=== PATIENT | male | born 1960 | race Caucasian/White ===

== ENCOUNTER 2017-02-16 00:10 | Emergency (ER) | payer MEDICARE, OTHER ==
[~2017-02-16] VITALS: Ht 188 cm; Wt 81.8 kg
[2017-02-16 00:14] VITALS: BP 124/60
[2017-02-16] MEDS ORDERED: FENT100PAT TD (00:17)
[2017-02-16] MEDS ORDERED: OXYC10 PO (00:17)
[2017-02-16] MEDS ORDERED: PROMETHAZINE HCL 25 MG in SODIUM CHLORIDE 0.9% 50 ML IV ONE (02:45)
[2017-02-16] MEDS ORDERED: LORazepam 2 MG/ML VIAL IVP ONE (02:45)
[2017-02-16 03:20] LABS: BASOPHILS # (AUTO) 0.04 K/uL (0.00-0.20); BASOPHILS % (AUTO) 0.6 % (0.0-2.0); EOSINOPHILS # (AUTO) 0.01 K/uL (0.00-0.70); EOSINOPHILS % (AUTO) 0.17 % (1.0-6.0); HEMATOCRIT 43.6 % (41-53); HEMOGLOBIN 14.3 g/dL (13.5-17.5); LYMPHOCYTES # (AUTO) 0.9 K/uL (1.0-4.8); LYMPHOCYTES % (AUTO) 14.1 % (22.0-44.0); MEAN CORPUSCULAR HEMOGLOBIN 31.7 pg (26.0-34.0); MEAN CORPUSCULAR HGB CONC 32.9 G/dL (31.0-37.0); MEAN CORPUSCULAR VOLUME 96 fL (80-100); MONOCYTES # (AUTO) 0.6 K/uL (0.1-1.0); MONOCYTES % (AUTO) 9.9 % (2.0-9.0); NEUTROPHILS # (AUTO) 4.7 K/uL (1.8-7.7); NEUTROPHILS % (AUTO) 75.2 % (40.0-70.0); PLATELET COUNT (AUTO) 353 K/uL (150-450); RED BLOOD CELL COUNT(AUTO) 4.52 MIL/uL (4.50-5.90); RED CELL DISTRIBUTION WIDTH 15.8 % (11.5-14.5); WHITE BLOOD COUNT (AUTO) 6.2 K/uL (4.5-11.0)
[2017-02-16 03:28] LABS: ANION GAP 15 mmol/L (8-16); CALCIUM, TOTAL 9.7 mg/dL (8.8-10.5); CARBON DIOXIDE 20 mmol/L (22-29); CHLORIDE 98 mmol/L (98-107); CREATININE 0.68 mg/dL (0.60-1.30); GLOMERULAR FILTR. RATE CALC > 60 mL/min (>60); POTASSIUM 3.6 mmol/L (3.5-5.1); SODIUM SERUM 133 mmol/L (136-145); UREA NITROGEN, BLOOD 8 mg/dL (7-18)
[2017-02-16 03:35] LABS: LACTIC ACID 0.7 mmol/L (0.4-2.0)
[2017-02-16 03:40] LABS: RBC MORPHOLOGY COMMENT DIMORPHIC RBC
[2017-02-16 03:42] LABS: ALANINE AMINOTRANSFERASE 15 U/L (12-78); ALBUMIN 3.3 g/dL (3.4-5.0); ASPARTATE AMINOTRANSFERASE 23 U/L (15-37); BILIRUBIN,TOTAL 0.4 mg/dL (0.1-1.0); TOTAL PROTEIN, SERUM 8.6 g/dL (6.4-8.2)
[2017-02-16] MEDS ORDERED: PROMETHAZINE HCL 25 MG/ML VIAL IM ONE (05:15)
[2017-02-16] MEDS ORDERED: HYDROmorphone 2 MG/ML SYRINGE IM ONE (05:15)
== END 2017-02-16 06:31 | disposition home or self-care (01) ==
LOC: EMS 00:14
DX: M54.5 Low back pain (principal); G89.29 Other chronic pain; F11.20 Opioid dependence, uncomplicated
CPT/HCPCS: 36415; 80053; 83605; 83690; 84484; 85025; 96372; 96374; 96375; 99284; G0480; J1170; J2060; J2550; J7050

== ENCOUNTER 2017-11-28 20:52 | Inpatient (IN) | payer MEDICARE, MEDICAID ==
[~2017-11-28] VITALS: Ht 180.3 cm; Wt 71.4 kg
[~2017-11-28 20:52] MED LIST: FENT100PAT TD; OXYC10 PO
[2017-11-28 22:48] LABS: AMPHET/METH SCREEN,URINE POSITIVE (NEGATIVE); BARBITURATE SCREEN, URINE NEGATIVE (NEGATIVE); BENZODIAZEPINES SCREEN,URINE POSITIVE (NEGATIVE); CANNABINOID SCREEN,URINE NEGATIVE (NEGATIVE); COCAINE SCREEN,URINE POSITIVE (NEGATIVE); METHADONE SCREEN, URINE NEGATIVE (NEGATIVE); OPIATE SCREEN,URINE POSITIVE (NEGATIVE)
[2017-11-28 22:49] LABS: PHENCYCLIDINE SCREEN,URINE NEGATIVE (NEGATIVE)
[2017-11-28 23:12] LABS: BASOPHILS % (AUTO) 0.2 % (0.0-2.0); EOSINOPHILS % (AUTO) 0.3 % (1.0-6.0); HEMATOCRIT 36.1 % (41-53); HEMOGLOBIN 12.9 g/dL (13.5-17.5); LYMPHOCYTES % (AUTO) 20.6 % (22.0-44.0); MEAN CORPUSCULAR HEMOGLOBIN 32.8 pg (26.0-34.0); MEAN CORPUSCULAR HGB CONC 35.6 G/dL (31.0-37.0); MEAN CORPUSCULAR VOLUME 92 fL (80-100); MONOCYTES # (AUTO) 0.4 K/uL (0.1-1.0); MONOCYTES % (AUTO) 8.6 % (2.0-9.0); NEUTROPHILS # (AUTO) 3.5 K/uL (1.8-7.7); NEUTROPHILS % (AUTO) 70.3 % (40.0-70.0); PLATELET COUNT (AUTO) 113 K/uL (150-450); RED BLOOD CELL COUNT(AUTO) 3.93 MIL/uL (4.50-5.90); RED CELL DISTRIBUTION WIDTH 14.8 % (11.5-14.5)
[2017-11-28 23:22] LABS: ANION GAP 16 mmol/L (8-16); CALCIUM, TOTAL 10.2 mg/dL (8.8-10.5); CARBON DIOXIDE 23 mmol/L (22-29); CHLORIDE 98 mmol/L (98-107); CREATININE 0.63 mg/dL (0.60-1.30); GLOMERULAR FILTR. RATE CALC > 60 mL/min (>60); GLUCOSE,RANDOM 99 mg/dL (70-110); SODIUM SERUM 137 mmol/L (136-145); UREA NITROGEN, BLOOD 17 mg/dL (7-18)
[2017-11-28 23:29] LABS: ALANINE AMINOTRANSFERASE 43 U/L (12-78); ALBUMIN 3.3 g/dL (3.4-5.0); ALKALINE PHOSPHATASE 84 U/L (46-116); ASPARTATE AMINOTRANSFERASE 65 U/L (15-37); BILIRUBIN,TOTAL 0.5 mg/dL (0.1-1.0); TOTAL PROTEIN, SERUM 8.9 g/dL (6.4-8.2)
[2017-11-29] VITALS (10 sets, daily range): BP systolic 118–138; BP diastolic 69–87
[2017-11-29] MEDS ORDERED: LORazepam 2 MG/ML VIAL IM ONE (01:00)
[2017-11-29] MEDS ORDERED: HALOPERIDOL LACTATE 5 MG/ML VIAL IM ONE (01:00)
[2017-11-29] MEDS ORDERED: DiphenhydrAMINE HCL 50 MG/ML VIAL IM ONE (01:00)
[2017-11-29] MEDS ORDERED: HALOPERIDOL 5 MG TABLET PO PRN (01:15)
[2017-11-29] MEDS ORDERED: LORazepam 2 MG TABLET PO PRN (01:15)
[2017-11-29] MEDS ORDERED: POTASSIUM CHLORIDE 20 MEQ ER TABLET PO ONE (03:33)
[2017-11-29] MEDS ORDERED: BENZOCAINE/MENTHOL LOZENGE MM PRN (09:00)
[2017-11-29] MEDS ORDERED: BENZOCAINE/MENTHOL LOZENGE [8 LOZENGES/PACKET] MM PRN (09:00)
[2017-11-29] MEDS ORDERED: PETROLATUM,WHITE 71 GM JELLY TP PRN (09:00)
[2017-11-29] MEDS ORDERED: MAGNESIUM HYDROXIDE SUSPENSION 30 ML UDCUP PO PRN (09:00)
[2017-11-29] MEDS ORDERED: LOPERAMIDE HCL 2 MG CAPSULE PO PRN ×2 (09:00→11:30)
[2017-11-29] MEDS ORDERED: CloNIDine HCL 0.1 MG TABLET PO PRN (09:00)
[2017-11-29] MEDS ORDERED: ACETAMINOPHEN 325 MG TABLET PO PRN (09:00)
[2017-11-29] MEDS ORDERED: BACITRACIN 28.4 GM OINTMENT TP PRN (09:00)
[2017-11-29] MEDS: ONDANSETRON HCL 4 MG TABLET PO PRN ×2 (09:19→13:34)
[2017-11-29] MEDS: IBUPROFEN 600 MG TABLET PO PRN ×2 (10:39→18:23)
[2017-11-29] MEDS ORDERED: CYANOCOBALAMIN 1,000 MCG/ML VIAL IM ONE (11:30)
[2017-11-29] MEDS ORDERED: GuaiFENesin/D-METHORPHAN [SUGAR-FREE] 200-20MG/10 ML SYRUP UDCUP PO PRN (11:30)
[2017-11-29] MEDS ORDERED: HydrOXYzine PAMOATE 50 MG CAPSULE PO PRN (11:30)
[2017-11-29] MEDS: FLUoxetine HCL 20 MG CAPSULE PO SCH (11:58)
[2017-11-29] MEDS: LORazepam 2 MG TABLET PO PRN ×2 (11:59→16:07)
[2017-11-29] MEDS: THIAMINE HCL 100 MG TABLET PO SCH (16:32)
[2017-11-29] MEDS: MAG HYDROX/AL HYDROX/SIMETH ES 30 ML SUSPENSION UDCUP PO PRN (18:21)
[2017-11-30] VITALS (10 sets, daily range): BP systolic 114–151; BP diastolic 77–87
[2017-11-30] MEDS: LORazepam 2 MG TABLET PO PRN (00:11)
[2017-11-30] MEDS: MAG HYDROX/AL HYDROX/SIMETH ES 30 ML SUSPENSION UDCUP PO PRN ×2 (00:12→18:11)
[2017-11-30] MEDS ORDERED: LORazepam 2 MG TABLET PO PRN (07:00)
[2017-11-30] MEDS: FOLIC ACID 1 MG TABLET PO SCH (08:31)
[2017-11-30] MEDS: FLUoxetine HCL 20 MG CAPSULE PO SCH (08:31)
[2017-11-30] MEDS: LORazepam 2 MG TABLET PO SCH ×4 (08:31→20:34)
[2017-11-30] MEDS: THIAMINE HCL 100 MG TABLET PO SCH ×2 (08:31→16:38)
[2017-11-30] MEDS: MULTIVITAMINS WITH MINERALS, THERAPEUTIC TABLET PO SCH (08:31)
[2017-11-30] MEDS: IBUPROFEN 600 MG TABLET PO PRN ×2 (10:21→16:22)
[2017-11-30] MEDS: TraMADol HCL 50 MG TABLET PO SCH (19:31)
[2017-12-01] VITALS (10 sets, daily range): BP systolic 116–150; BP diastolic 80–93
[2017-12-01] MEDS: TraMADol HCL 50 MG TABLET PO SCH ×2 (00:11→08:03)
[2017-12-01] MEDS: ZOLPIDEM TARTRATE 10 MG TABLET PO PRN (00:12)
[2017-12-01] MEDS: IBUPROFEN 600 MG TABLET PO PRN ×2 (05:56→12:17)
[2017-12-01] MEDS: MULTIVITAMINS WITH MINERALS, THERAPEUTIC TABLET PO SCH (08:03)
[2017-12-01] MEDS: FOLIC ACID 1 MG TABLET PO SCH (08:03)
[2017-12-01] MEDS: FLUoxetine HCL 20 MG CAPSULE PO SCH (08:04)
[2017-12-01] MEDS: THIAMINE HCL 100 MG TABLET PO SCH ×2 (08:04→16:36)
[2017-12-01] MEDS: LORazepam 2 MG TABLET PO SCH ×4 (08:04→20:53)
[2017-12-01] MEDS: NICOTINE 21 MG/24 HOUR PATCH TD SCH (08:04)
[2017-12-01 10:11] LABS: ANION GAP 7 mmol/L (8-16); CALCIUM, TOTAL 9.2 mg/dL (8.8-10.5); CARBON DIOXIDE 27 mmol/L (22-29); CHLORIDE 97 mmol/L (98-107); CHOLESTEROL 106 mg/dL (131-200); GLOMERULAR FILTR. RATE CALC > 60 mL/min (>60); GLUCOSE,RANDOM 106 mg/dL (70-110); HDL CHOLESTEROL 53 mg/dL (40-60); LDL CHOL (CALC.) 48 mg/dL (0-130); POTASSIUM 3.9 mmol/L (3.5-5.1); SODIUM SERUM 131 mmol/L (136-145); TRIGLYCERIDES 27 mg/dL (15-150); UREA NITROGEN, BLOOD 13 mg/dL (7-18)
[2017-12-01] MEDS ORDERED: OxyCODONE HCL 5 MG IR TABLET PO PRN (11:15)
[2017-12-01] MEDS: LISINOPRIL 20 MG TABLET PO SCH (12:17)
[2017-12-01] MEDS: OxyCODONE HCL 10 MG IR TABLET PO PRN ×2 (14:08→20:10)
[2017-12-01] MEDS: MAG HYDROX/AL HYDROX/SIMETH ES 30 ML SUSPENSION UDCUP PO PRN (19:12)
[2017-12-02] VITALS (9 sets, daily range): BP systolic 110–142; BP diastolic 70–92
[2017-12-02] MEDS: ZOLPIDEM TARTRATE 10 MG TABLET PO PRN
[2017-12-02] MEDS: OxyCODONE HCL 10 MG IR TABLET PO PRN ×4 (02:36→20:53)
[2017-12-02] MEDS ORDERED: LORazepam 1 MG TABLET PO PRN (07:00)
[2017-12-02] MEDS: LORazepam 1 MG TABLET PO SCH ×4 (08:24→20:28)
[2017-12-02] MEDS: THIAMINE HCL 100 MG TABLET PO SCH ×2 (08:24→16:49)
[2017-12-02] MEDS: CHOLECALCIFEROL (VIT D3) 1,000 UNITS TABLET PO SCH (08:25)
[2017-12-02] MEDS: FLUoxetine HCL 20 MG CAPSULE PO SCH (08:25)
[2017-12-02] MEDS: LISINOPRIL 20 MG TABLET PO SCH (08:25)
[2017-12-02] MEDS: MULTIVITAMINS WITH IRON TABLET PO SCH (08:25)
[2017-12-02] MEDS: FOLIC ACID 1 MG TABLET PO SCH (08:25)
[2017-12-02] MEDS: NICOTINE 21 MG/24 HOUR PATCH TD SCH (08:25)
[2017-12-02] MEDS: ALBUTEROL SULFATE HFA 90 MCG/PUFF 8 GM INHALER IH PRN (18:35)
[2017-12-02] MEDS: MAG HYDROX/AL HYDROX/SIMETH ES 30 ML SUSPENSION UDCUP PO PRN (19:47)
[2017-12-03] VITALS: BP 141/85
[2017-12-03] MEDS: ZOLPIDEM TARTRATE 10 MG TABLET PO PRN (00:04)
[2017-12-03 03:10] VITALS: BP 120/79
[2017-12-03] MEDS: OxyCODONE HCL 10 MG IR TABLET PO PRN (03:13)
[2017-12-03] MEDS: ALBUTEROL SULFATE HFA 90 MCG/PUFF 8 GM INHALER IH PRN (03:45)
[2017-12-03] MEDS ORDERED: LORazepam 1 MG TABLET PO PRN (07:00)
[2017-12-03] MEDS: THIAMINE HCL 100 MG TABLET PO SCH (08:30)
[2017-12-03] MEDS: LISINOPRIL 20 MG TABLET PO SCH (08:30)
[2017-12-03] MEDS: FLUoxetine HCL 20 MG CAPSULE PO SCH (08:30)
[2017-12-03] MEDS: CHOLECALCIFEROL (VIT D3) 1,000 UNITS TABLET PO SCH (08:30)
[2017-12-03] MEDS: MULTIVITAMINS WITH IRON TABLET PO SCH (08:30)
[2017-12-03] MEDS: FOLIC ACID 1 MG TABLET PO SCH (08:31)
[2017-12-03] MEDS: NICOTINE 21 MG/24 HOUR PATCH TD SCH (08:33)
[2017-12-03] MEDS ORDERED: FLUO-191 PO (08:51)
[2017-12-03] MEDS ORDERED: LISI-662 PO (08:55)
[2017-12-03 09:00] VITALS: BP 112/82
[2017-12-03] MEDS ORDERED: CHOL100034 PO (09:03)
[2017-12-03] MEDS ORDERED: MVITFE PO (09:05)
[2017-12-03] MEDS: ONDANSETRON HCL 4 MG TABLET PO PRN (09:06)
[2017-12-03] MEDS: IBUPROFEN 600 MG TABLET PO PRN (10:05)
== END 2017-12-03 11:00 | disposition home or self-care (01) | DRG 885 ==
LOC: EMS 20:53 → AHU 11-29 02:12 → B2S 11-29 09:20 → B2X 11-29 14:27
PROVIDERS: ADMIT Psychiatry & Neurology Psychiatry; ATTEND Psychiatry & Neurology Psychiatry
DX: F33.2 Major depressive disorder, recurrent severe without psychotic features (principal); D69.6 Thrombocytopenia, unspecified; R45.851 Suicidal ideations; F11.23 Opioid dependence with withdrawal; B19.20 Unspecified viral hepatitis C without hepatic coma; E87.6 Hypokalemia; F10.229 Alcohol dependence with intoxication, unspecified; F14.10 Cocaine abuse, uncomplicated; F15.10 Other stimulant abuse, uncomplicated; F41.9 Anxiety disorder, unspecified; G47.00 Insomnia, unspecified; G89.29 Other chronic pain; I10 Essential (primary) hypertension; J44.9 Chronic obstructive pulmonary disease, unspecified; M19.90 Unspecified osteoarthritis, unspecified site; Z96.659 Presence of unspecified artificial knee joint; M54.9 Dorsalgia, unspecified; Z71.51 Drug abuse counseling and surveillance of drug abuser; Z59.0 Homelessness; Z87.891 Personal history of nicotine dependence; Z91.19 Patient's noncompliance with other medical treatment and regimen; Z79.899 Other long term (current) drug therapy
CPT/HCPCS: 80074; 82306; 84443; G0480; J1200; J1630; J2060; J3420; J3535; Q0162